=== PATIENT | male | born 1975 | race Two or more races ===

== ENCOUNTER 2023-10-20 17:11 | Emergency (ER) | payer OTHER ==
[~2023-10-20] VITALS: Ht 167.6 cm; Wt 100.0 kg
[2023-10-20 18:47] VITALS: BP 159/80; PULSE 92; RESP 18; TEMP 98.1; O2SAT 96
[2023-10-20] MEDS ORDERED: MUPI2OIN2 EX (19:08)
[2023-10-20] MEDS ORDERED: CEPH500C PO (19:08)
[2023-10-20] MEDS ORDERED: HYDR-4902 PO (19:08)
[2023-10-20] MEDS: NEOMYCIN-BACITRACIN-POLYM UNITDOSE PKG TOP OINT TOP ONE (19:12)
[2023-10-20] MEDS: TETANUS-DIPTH-ACEL PERTUSSIS 0.5ML SYR Tdap IM ONE (19:24)
== END 2023-10-20 19:26 | disposition home or self-care (01) ==
LOC: EDBD 17:11 → ER 17:11
DX: S33.5XXA Sprain of ligaments of lumbar spine, initial encounter (principal); S93.401A Sprain of unspecified ligament of right ankle, initial encounter; S09.90XA Unspecified injury of head, initial encounter; J45.909 Unspecified asthma, uncomplicated; Z79.899 Other long term (current) drug therapy; V23.49XA Other motorcycle driver injured in collision with car, pick-up truck or van in traffic accident, initial encounter; Y93.89 Activity, other specified; Y92.410 Unspecified street and highway as the place of occurrence of the external cause; Y99.8 Other external cause status
CPT/HCPCS: 70450; 72100; 73600; 90471; 90715